=== PATIENT | male | born 1995 | race Caucasian/White ===

== ENCOUNTER 2022-02-17 04:21 | Emergency (ER) | payer OTHER ==
[~2022-02-17] VITALS: Ht 180.3 cm; Wt 86.2 kg
[2022-02-17 04:51] LABS: BASO % 0.1 % (0.0-1.0); HEMATOCRIT 47.1 % (42.0-52.0); LYMPH # 1.6 10*3/uL (1.3-4.4); LYMPH % 11.6 % (27.0-41.0); MEAN CELL VOLUME 87.2 fl (80.0-94.0); MEAN CORPUSCULAR HGB 29.8 pg (27.0-31.0); MEAN CORPUSCULAR HGB CONC 34.2 g/dl (33.0-37.0); MEAN PLATELET VOLUME 8.3 fl (9.6-12.3); MONO # 0.8 10*3/uL (0.1-1.0); NEUT # 11.4 10*3/uL (2.3-7.9); PLATELET COUNT AUTOMATED 382 10*3/uL (130-400); RED CELL DISTRI WIDTH 12.9 % (0-14.5); WHITE BLOOD COUNT 13.9 10*3/uL (4.8-10.8)
[2022-02-17 05:09] LABS: ALKALINE PHOSPHATASE 84 U/L (45-117); BUN 12 mg/dl (7-24); CHLORIDE 104 mmol/L (98-107); CREATININE 1.04 mg/dL (0.70-1.30); LIPASE 36 U/L (73-393); SGOT/AST 25 IU/L (3-35); SGPT/ALT 35 U/L (12-78); SODIUM 137 mmol/L (136-145)
[2022-02-17 05:14] LABS: ETHYL ALCOHOL < 3.0 mg/dl (<3)
[2022-02-17] MEDS ORDERED: PHENERGAN25 M3 PO (05:46)
== END 2022-02-17 07:12 ==
LOC: ED 04:21
PROVIDERS: Emergency Medicine
DX: R10.30 Lower abdominal pain, unspecified (principal); R11.10 Vomiting, unspecified

== ENCOUNTER 2022-03-19 16:12 | Emergency (ER) | payer OTHER ==
[~2022-03-19] VITALS: Ht 172.7 cm; Wt 90.7 kg
[~2022-03-19 16:12] MED LIST: PHENERGAN25 M3 PO
== END 2022-03-19 19:48 | disposition home or self-care (01) ==
LOC: ED 16:12
DX: F19.10 Other psychoactive substance abuse, uncomplicated (principal); Z88.8 Allergy status to other drugs, medicaments and biological substances